=== PATIENT | female | born 1940 ===

== ENCOUNTER 2022-09-20 15:23 | Outpatient (CLI) | payer MEDICARE, OTHER | END 2022-09-20 15:24 | disposition home or self-care (01) | LOC: CSHRAD 15:23 | PROVIDERS: ATTEND Internal Medicine Gastroenterology | DX: K59.09 Other constipation (principal); R10.9 Unspecified abdominal pain; R10.13 Epigastric pain; K57.90 Diverticulosis of intestine, part unspecified, without perforation or abscess without bleeding; K76.89 Other specified diseases of liver | CPT/HCPCS: 74019 ==